=== PATIENT | male | born 1980 | race Caucasian/White ===

== ENCOUNTER 2018-03-16 16:59 | Emergency (ER) | payer BC ==
[2018-03-16 17:03] VITALS: BP 138/81
[2018-03-16] MEDS ORDERED: HYDROcodone/ACETAMIN 5-325 MG* 1 TAB PO ONE ×2 (17:58→19:50)
[2018-03-16] MEDS ORDERED: Tetan/Diph/Pertus SYR(Tdap)* 0.5 ML SYR(BOOSTRIX) use SYR IM ONE (18:49)
[2018-03-16] MEDS ORDERED: Cephalexin CAP* 500 MG PO ONE (19:31)
--- NOTE | 2018-03-16 19:52 | ED ---
Upper Extremity Pain - HPI Summary HPI Summary: Patient complains of crush injury to distal tip of right ring finger with partial amputation of medial portion of distal tip of right ring finger and total nailbed avulsion. Bleeding controlled. Tetanus status unknown. Denies any other injury, pain, symptoms. - History of Current Complaint Chief Complaint: EDExtremityUpper Stated Complaint: RT RING FINGER INJURY Time Seen by Provider: 03/16/18 17:33 Hx Obtained From: Patient Mechanism Of Injury: Blunt Trauma Onset/Duration: Started Hours Ago Timing: Constant Severity Initially: Severe Severity Currently: Severe Pain Location: Finger Character: Throbbing Aggravating Factor(s): Movement Alleviating Factor(s): Nothing - Allergies/Home Medications Allergies/Adverse Reactions: Allergies Allergy/AdvReac Type Severity Reaction Status Date / Time No Known Allergies Allergy Verified 03/16/18 17:03 PMH/Surg Hx/FS Hx/Imm Hx Endocrine/Hematology History: Denies: Hx Anticoagulant Therapy Cardiovascular History: Denies: Hx Cardiac Arrest History: Denies: Hx Dialysis Neurological History: Denies: Hx CVA Infectious Disease History: No Infectious Disease History: Denies: Traveled Outside the [place] in Last 30 Days - Social History Alcohol Use: Occasionally Substance Use Type: Reports: None Smoking Status (MU): Never Smoked Tobacco Review of Systems Constitutional: Negative Eyes: Negative ENT: Negative Cardiovascular: Negative Respiratory: Negative Gastrointestinal: Negative Genitourinary: Negative Musculoskeletal: Negative Skin: Other Neurological: Negative Psychological: Normal All Other Systems Reviewed And Are Negative: Yes Physical Exam - Summary Physical Exam Summary: Partial amputation of medial portion of distal tip of right ring finger with nailbed avulsion. Nailbed intact. Distal portion of distal phalanx exposed and palpable. Sensation intact distally. Patient does not have nail or amputated portion of finger. Function and sensation intact on other fingers and hand. Triage Information Reviewed: Yes Vital Signs On Initial Exam: Initial Vitals Temp Pulse Resp BP Pulse Ox 98.1 F 82 19 138/81 98 03/16/18 17:01 03/16/18 17:01 03/16/18 17:01 03/16/18 17:01 03/16/18 17:01 Vital Signs Reviewed: Yes Appearance: Positive: Well-Appearing Skin: Positive: Warm Head/Face: Positive: Normal Head/Face Inspection Eyes: Positive: Normal Neck: Positive: Supple Respiratory/Lung Sounds: Positive: Clear to Auscultation Cardiovascular: Positive: Normal Abdomen Description: Positive: Nontender Musculoskeletal: Positive: Normal Neurological: Positive: Normal Psychiatric: Positive: Normal AVPU Assessment: Alert - Janell Coma Scale Best Eye Response: 4 - Spontaneous Best Motor Response: 6 - Obeys Commands Best Verbal Response: 5 - Oriented Coma Scale Total: 15 Diagnostics - Vital Signs Vital Signs Temp Pulse Resp BP Pulse Ox 03/16/18 17:01 98.1 F 82 19 138/81 98 - Laboratory Lab Statement: Any lab studies that have been ordered have been reviewed, and results considered in the medical decision making process. Course/Dx - Course Course Of Treatment: Patient complains of crush injury to distal tip of right ring finger with partial amputation of medial portion of distal tip of right ring finger and total nailbed avulsion. Bleeding controlled. Tetanus status unknown. Denies any other injury, pain, symptoms. Physical exam:Partial amputation of medial portion of distal tip of right ring finger with nailbed avulsion. Nailbed intact. Distal portion of distal phalanx exposed and palpable. Sensation intact distally. Patient does not have nail or amputated portion of finger. Function and sensation intact on other fingers and hand. Patient seen by Dr. Hernandez who recommended cleaning wound, wrapping and follow- up in the clinic on Monday. Dr. Hernandez stated patient did not need nail replacement prosthetic at this time. Patient wounds cleansed with Betadine and saline, wrapped in Xeroform, placed in splint and wrapped with Kerlix. Started on Keflex 500 mg by mouth. Rx for same. Follow up in clinic with Dr. Hernandez on Monday. - Diagnoses Provider Diagnoses: Avulsion of nail, Amputation finger-complicated Discharge - Sign-Out/Discharge Documenting (check all that apply): Patient Departure - Discharge Plan Condition: Stable Disposition: HOME Prescriptions: Cephalexin CAP* [Keflex CAP*] 500 mg PO TID 10 Days #30 cap HYDROcodone/ACETAMIN 5-325 MG* [[place] 5-325 TAB*] 1 tab PO TID 3 Days #10 tab MDD 3-4 tabs Patient Education Materials: Finger Amputation (ED), Nail Avulsion (ED) Referrals: No Primary Care Phys,NOPCP [Primary Care Provider] - Francis Hernandez MD [Medical Doctor] - Additional Instructions: Take antibiotics as directed. Keep wound clean and dry and intact until follow- up with orthopedics Dr. Hernandez. Return to the ED for any new or worsening symptoms. - Billing Disposition and Condition Condition: STABLE Disposition: Home
== END 2018-03-16 20:07 | disposition home or self-care (01) ==
LOC: ED 16:59
DX: S68.124A Partial traumatic metacarpophalangeal amputation of right ring finger, initial encounter (principal); X58.XXXA Exposure to other specified factors, initial encounter; Y92.9 Unspecified place or not applicable; Z23 Encounter for immunization
CPT/HCPCS: 73140; 90471; 90715; 99282; A9270-GY

== ENCOUNTER 2018-03-26 09:29 | Day surgery (SDC) | payer BC ==
[~2018-03-26 09:29] MED LIST: Buffered Lidocaine 0.9% SYRIN* 5 ML/SYR SYRINGE INTRADERM ONE
[2018-03-26] MEDS ORDERED: ceFAZolin 2 GM PREMIX in ORs 2 GM/50 ML BAG IVPB ONE (10:02)
[2018-03-26] MEDS ORDERED: Buffered Lidocaine 0.9% SYRIN* 5 ML/SYR SYRINGE ONE (10:03)
[2018-03-26] MEDS ORDERED: Naloxone* 0.4 MG/ML 1 ML VIAL IV PRN (10:08)
[2018-03-26] MEDS ORDERED: Midazolam* 1 MG/ML 5 ML VIAL (5 MG) ONE (10:25)
[2018-03-26] MEDS ORDERED: fentaNYL* 50 MCG/ML 2 ML VIAL (100 MCG VIAL) ONE (10:31)
[2018-03-26] MEDS ORDERED: Midazolam* 1 MG/ML 2 ML VIAL (2 MG) ONE (10:31)
[2018-03-26] MEDS ORDERED: Bacitracin IV* 50,000 UNITS INJ ONE (10:45)
[2018-03-26] MEDS ORDERED: Bacitracin OINTMENT* 0.5% 0.5 oz TUBE ONE (10:45)
[2018-03-26] MEDS ORDERED: Propofol* 10 MG/ML 20 ML BTL ONE (10:55)
[2018-03-26] MEDS ORDERED: Lidocaine 2% PF * 5 ML VIAL ONE (10:56)
[2018-03-26 12:14] VITALS: BP 124/80
--- NOTE | 2018-03-27 05:23 | OP ---
DATE OF OPERATION: 03/26/18 - [facility] DATE OF : 76 SURGEON: Francis Hernandez MD. JEWELRY SALES ASSOCIATE: KAYCE Forte. An food and beverage assistant was needed to aid in positioning of the hand and retraction. ANESTHESIOLOGIST: Dr. Mcclure. ANESTHESIA: Local MAC. PRE-OP DIAGNOSIS: Right ring finger crush injury with full-thickness soft tissue loss and exposed bone in the distal phalanx. POST-OP DIAGNOSIS: Right ring finger crush injury with full-thickness soft tissue loss and exposed bone in the distal phalanx. OPERATIVE PROCEDURE: Revision amputation right ring finger with closure with local advancement Kutler flaps. INDICATIONS: Gray had the injury on 03/16/18. Wound was dressed. He follows up now after the for definitive treatment of the injury. ESTIMATED BLOOD LOSS: 1 mL. COMPLICATIONS: None. FINDINGS: See above and below. DESCRIPTION OF PROCEDURE: Gray was seen in the preoperative holding area. The correct site, side, and procedure were identified. We came back to the operating room. We had a time-out and performed a digital block with 0.25% Marcaine. The arm was prepped and draped in the usual fashion and a time-out was performed. A finger tourniquet was placed and this was left on throughout the procedure. I went ahead and used a curette to remove all of the granulation tissue and soft tissue that had formed in the bed of the soft tissue defect. There was a large amount of exposed bone in the bed of the wound, but there was just a small bit of distal phalanx missing. The distal portion of the sterile matrix was missing as well. Once I had everything nice and clean, I trimmed out my skin edges with a knife to get nice healthy edges. I went ahead and released just the soft tissue around the distal aspect of the distal phalanx. I used a bone cutter to remove 2 mm of bone. I made a nice sharp transverse edge to the sterile matrix with my #15 blade leaving only healthy well-preserved sterile matrix. I then came along the radial aspect of the finger and made a V-shaped Kutler type flap. Dissection was carried down preserving the soft tissue along the volar aspect to keep the flap perfused. The flap was released off the bone deeply with a [place] blade. I was able to get about 4 to 5 mm of advancement. I was also able to bring the distal flap of tissue over and between the 2 advancement flaps. I was able to get the wound nicely closed. The Kutler flap was closed as a Y, creating a V-Y flap. The wounds were closed with 4-0 simple interrupted sutures. I then opened up the nail fold again and placed a piece of chromic gut suture wrapper in the nail fold and sewed this down with a couple of 4-0 nylon sutures, one proximally and one distally. At this point, everything was looking good. I cut off the finger tourniquet and the flap was pink and well perfused immediately. I, therefore, placed soft dressings and he was taken to the recovery room in stable condition. [id number] #: [id number] ARLEN
== END 2018-03-26 12:48 | disposition home or self-care (01) ==
LOC: OR 09:29
PROVIDERS: ATTEND Orthopaedic Surgery Hand Surgery
DX: S67.194A Crushing injury of right ring finger, initial encounter (principal); X58.XXXA Exposure to other specified factors, initial encounter; Y92.009 Unspecified place in unspecified non-institutional (private) residence as the place of occurrence of the external cause
CPT/HCPCS: A9270-GY; J0690; J2250; J2704; J3010